=== PATIENT | male | born 1945 | race Caucasian/White ===

== ENCOUNTER → 2020-04-04 14:49 | Outpatient (CLI) | payer MEDICARE, SELFPAY ==
[2020-04-04 15:53] LABS: Basophils # 0.1 K/mm3 (0-0.2); Eosinophils # 0.3 K/mm3 (0.0-0.4); Eosinophils % 4.2 % (0.1-12.0); Hematocrit 46.6 % (42.0-52.0); Hemoglobin 15.7 g/dL (14.1-18.0); Lymphocytes # 2.2 K/mm3 (0.7-4.5); Lymphocytes % 34.1 % (10-50); Mean Corpuscular HGB Conc 33.6 g/dL (31.8-35.4); Mean Corpuscular Hemoglobin 33.1 pg (27.0-31.2); Mean Corpuscular Volume 98.4 fl (80-94); Mean Platelet Volume 9.3 fl (7.4-10.4); Monocytes # 0.5 K/mm3 (0.1-1.0); Neutrophils # 3.5 K/mm3 (1.8-7.8); Neutrophils % 53.8 % (37.0-80.0); Platelet Count 207 K/mm3 (142-424); Red Blood Count 4.74 M/mm3 (4.60-6.20); Red Cell Distribution Width 13.5 % (11.5-17.5); White Blood Count 6.5 K/mm3 (4.8-10.8)
[2020-04-04 15:56] LABS: Alanine Aminotransferase 45 U/L (12-78); Albumin Level 4.3 g/dl (3.5-5.0); Albumin/Globulin Ratio 1.7 (1.1-1.8); Alkaline Phosphatase 91 U/L (38-126); Aspartate Amino Transferase 40 U/L (17-59); Bilirubin,Total 0.7 mg/dl (0.2-1.3); Blood Urea Nitrogen 22 mg/dl (9-20); Calcium 9.6 mg/dl (8.4-10.2); Carbon Dioxide 29 mmol/L (22.0-30.0); Chloride 104 mmol/L (98-107); Chol/HDL Ratio 3.7 (1-3.5); Cholesterol 128 mg/dl (140-200); Estimated Glomerular Filt Rate 66 ml/min (>60); GFR (African American) 79 ML/MIN (>60); Globulin 2.5 g/dL (1.3-3.2); Glucose 105 mg/dl (74-100); HDL Cholesterol 35 mg/dl (40-60); Sodium 141 mmol/L (136-145); Total Protein,Serum 6.8 g/dl (6.3-8.2); Triglycerides 212 mg/dl (30-150); VLDL Cholesterol 42 mg/dL (0-40)
[2020-04-04 16:30] LABS: Prostate Specific Ag Screen 0.5 ng/ml (0.0-4.0)
== END ==
PROVIDERS: Visit Provider Family Medicine
DX: E78.5 Hyperlipidemia, unspecified (principal); I10 Essential (primary) hypertension; Z12.5 Encounter for screening for malignant neoplasm of prostate; J30.2 Other seasonal allergic rhinitis
CPT/HCPCS: 80053; 80061; 85025; G0103

== ENCOUNTER → 2021-03-20 13:17 | Outpatient (CLI) | payer MEDICARE, SELFPAY | PROVIDERS: Visit Provider Family Medicine | DX: R82.90 Unspecified abnormal findings in urine (principal); B96.20 Unspecified Escherichia coli [E. coli] as the cause of diseases classified elsewhere | CPT/HCPCS: 87086; 87088; 87186 ==

== ENCOUNTER → 2021-04-02 13:40 | Outpatient (CLI) | payer MEDICARE, SELFPAY ==
[2021-04-02 13:48] LABS: Microscopic, Urine URINE MICROSCOPIC (MICROSCOPIC)
[2021-04-02 14:39] LABS: Appearance,Urine CLEAR (Clear); Bilirubin,Urine Negative (Negative); Blood, Urine Negative (Negative); Color,Urine YELLOW (Yellow); Glucose,Urine (UA) Negative (Negative); Ketones,Urine Negative (Negative); Leukocyte Esterase,Urine Negative (Negative); Nitrate,Urine Negative (Negative); PH,Urine 5.5 (5.0-8.5); Protein,Urine Negative (Negative); Urobilinogen,Urine 0.2 EU/dl (0.2)
[2021-04-02 15:31] LABS: WBC,Urine Occasional #/hpf (0-3)
== END ==
PROVIDERS: Visit Provider Family Medicine
DX: R82.90 Unspecified abnormal findings in urine (principal)
CPT/HCPCS: 81001

== ENCOUNTER → 2021-04-16 19:29 | Outpatient (CLI) | payer MEDICARE, SELFPAY ==
[2021-04-16 20:04] LABS: Anion Gap 8.5 mEq/L (5-15); Blood Urea Nitrogen 21 mg/dl (9-20); Calcium 8.7 mg/dl (8.4-10.2); Carbon Dioxide 30 mmol/L (22.0-30.0); Chloride 102 mmol/L (98-107); Estimated Glomerular Filt Rate 73 ml/min (>60); GFR (African American) 88 ML/MIN (>60); Glucose 104 mg/dl (74-100); Potassium 3.5 mmoL/L (3.5-5.1); Sodium 137 mmol/L (136-145)
== END ==
PROVIDERS: Visit Provider Family Medicine
DX: E78.5 Hyperlipidemia, unspecified (principal)
CPT/HCPCS: 80048

== ENCOUNTER → 2021-05-31 12:06 | Outpatient (CLI) | payer MEDICARE, SELFPAY ==
--- NOTE | 2021-05-31 12:11 | XR_ITS ---
FINAL REPORT TECHNIQUE: Chest PA & Lateral CLINICAL HISTORY: covid follow up, crackles right base FINDINGS: 2 views of the chest were performed. The heart size is normal. The mediastinum is within normal limits. There are patchy bibasilar airspace infiltrates. There is mild elevation of the right hemidiaphragm. There are no pleural effusions. There is no pneumothorax. The bony thorax appears intact. IMPRESSION: Patchy bibasilar airspace infiltrates. Reviewed, Interpreted and Dictated by Braulio Isaacs MD Transcribed by Joe Jurado Authenticated by Braulio Isaacs MD on 05/31/2021 01:27:38 PM [facility]
== END ==
PROVIDERS: PCP Family Medicine; Visit Provider Family Medicine
DX: R06.02 Shortness of breath (principal); U09.9 Post COVID-19 condition, unspecified
CPT/HCPCS: 71046

== ENCOUNTER → 2023-02-12 09:40 | Outpatient (CLI) | payer MEDICARE, SELFPAY ==
[2023-02-12 18:42] LABS: Basophils % 0.8 % (0.1-2.0); Eosinophils # 0.2 K/mm3 (0.0-0.4); Eosinophils % 3.7 % (0.1-12.0); Hematocrit 45.1 % (42.0-52.0); Hemoglobin 15.2 g/dL (14.1-18.0); Lymphocytes # 1.7 K/mm3 (0.7-4.5); Lymphocytes % 32.4 % (10-50); Mean Corpuscular HGB Conc 33.7 g/dL (31.8-35.4); Mean Corpuscular Hemoglobin 33.6 pg (27.0-31.2); Mean Corpuscular Volume 99.6 fl (80-94); Mean Platelet Volume 10.4 fl (7.4-10.4); Monocytes # 0.5 K/mm3 (0.1-1.0); Monocytes % 9.2 % (1.7-9.3); Neutrophils # 2.8 K/mm3 (1.8-7.8); Neutrophils % 53.9 % (37.0-80.0); Platelet Count 169 K/mm3 (142-424); Red Blood Count 4.52 M/mm3 (4.60-6.20); Red Cell Distribution Width 13.8 % (11.5-17.5); White Blood Count 5.3 K/mm3 (4.8-10.8)
[2023-02-12 18:47] LABS: Alanine Aminotransferase 34 U/L (12-78); Albumin/Globulin Ratio 1.5 (1.1-1.8); Alkaline Phosphatase 87 U/L (38-126); Aspartate Amino Transferase 39 U/L (17-59); Bilirubin,Total 0.8 mg/dl (0.2-1.3); Blood Urea Nitrogen 18 mg/dl (9-20); Calcium 9.4 mg/dl (8.4-10.2); Carbon Dioxide 26 mmol/L (22.0-30.0); Chloride 106 mmol/L (98-107); Chol/HDL Ratio 4.2 (1-3.5); Cholesterol 117 mg/dl (140-200); Estimated Glomerular Filt Rate 82 ml/min (>60); GFR (African American) 99 ML/MIN (>60); Globulin 2.7 g/dL (1.3-3.2); Glucose 122 mg/dl (74-100); HDL Cholesterol 28 mg/dl (40-60); Total Protein,Serum 6.7 g/dl (6.3-8.2); Triglycerides 188 mg/dl (30-150); VLDL Cholesterol 38 mg/dL (0-40)
[2023-02-12 18:58] LABS: Direct LDL Cholesterol 65.15 mg/dL (100-129)
[2023-02-12 19:18] LABS: Prostate Specific Ag Screen 0.5 ng/ml (0.0-4.0); Sodium 139 mmol/L (136-145)
== END ==
PROVIDERS: PCP Family Medicine; Visit Provider Family Medicine
DX: E78.5 Hyperlipidemia, unspecified (principal); Z12.5 Encounter for screening for malignant neoplasm of prostate; I25.10 Atherosclerotic heart disease of native coronary artery without angina pectoris
CPT/HCPCS: 80053; 80061; 85025; G0103

== ENCOUNTER 2023-09-18 09:57 | Outpatient (CLI) | payer MEDICARE, SELFPAY ==
[2023-09-18 18:09] LABS: Basophils # 0.1 K/mm3 (0-0.2); Basophils % 1.1 % (0.1-2.0); Eosinophils # 0.3 K/mm3 (0.0-0.4); Eosinophils % 5.5 % (0.1-12.0); Hematocrit 46.7 % (42.0-52.0); Hemoglobin 15.5 g/dL (14.1-18.0); Lymphocytes % 34.8 % (10-50); Mean Corpuscular HGB Conc 33.1 g/dL (31.8-35.4); Mean Corpuscular Hemoglobin 33.6 pg (27.0-31.2); Mean Corpuscular Volume 101.7 fl (80-94); Mean Platelet Volume 10.7 fl (7.4-10.4); Monocytes # 0.4 K/mm3 (0.1-1.0); Monocytes % 7.3 % (1.7-9.3); Neutrophils % 51.3 % (37.0-80.0); Platelet Count 177 K/mm3 (142-424); Red Blood Count 4.59 M/mm3 (4.60-6.20); Red Cell Distribution Width 14.5 % (11.5-17.5); White Blood Count 5.8 K/mm3 (4.8-10.8)
[2023-09-18 18:39] LABS: Alanine Aminotransferase 34 U/L (12-78); Albumin/Globulin Ratio 1.6 (1.1-1.8); Alkaline Phosphatase 81 U/L (38-126); Anion Gap 14.2 mEq/L (5-15); Aspartate Amino Transferase 35 U/L (17-59); Blood Urea Nitrogen 17 mg/dl (9-20); Calcium 9.6 mg/dl (8.4-10.2); Carbon Dioxide 27 mmol/L (22.0-30.0); Chloride 105 mmol/L (98-107); Chol/HDL Ratio 3.3 (1-3.5); Cholesterol 117 mg/dl (140-200); Estimated Glomerular Filt Rate 73 ml/min (>60); GFR (African American) 88 ML/MIN (>60); Globulin 2.5 g/dL (1.3-3.2); Glucose 97 mg/dl (74-100); HDL Cholesterol 35 mg/dl (40-60); Potassium 4.2 mmoL/L (3.5-5.1); Sodium 142 mmol/L (136-145); Total Protein,Serum 6.5 g/dl (6.3-8.2); Triglycerides 174 mg/dl (30-150); VLDL Cholesterol 35 mg/dL (0-40)
[2023-09-18 18:50] LABS: Direct LDL Cholesterol 62.87 mg/dL (100-129)
[2023-09-18 20:29] LABS: Hemoglobin A1C 5.3 % (4.0-6.0)
== END 2023-09-18 23:59 | disposition home or self-care (01) ==
LOC: LAB.DROPOF 09-19 09:57
PROVIDERS: PCP Family Medicine; Visit Provider Family Medicine
DX: I11.9 Hypertensive heart disease without heart failure (principal); I25.10 Atherosclerotic heart disease of native coronary artery without angina pectoris; E78.5 Hyperlipidemia, unspecified; R73.09 Other abnormal glucose
CPT/HCPCS: 80053; 80061; 83036; 85025

== ENCOUNTER 2024-04-08 09:20 | Outpatient (CLI) | payer MEDICARE, SELFPAY ==
[2024-04-08 19:17] LABS: Prostate Specific Ag Screen 0.5 ng/ml (0.0-4.0)
== END 2024-04-08 23:59 | disposition home or self-care (01) ==
LOC: LAB.DROPOF 04-09 09:32
PROVIDERS: PCP Family Medicine; Visit Provider Family Medicine
DX: Z12.5 Encounter for screening for malignant neoplasm of prostate (principal)
CPT/HCPCS: G0103

== ENCOUNTER 2024-12-06 13:00 | Outpatient (CLI) | payer MEDICARE, SELFPAY ==
[2024-12-06 15:39] LABS: Hematocrit 45.5 % (42.0-52.0); Hemoglobin 15.1 g/dL (14.1-18.0); Immature Granulocytes % 0.7 %; Mean Corpuscular HGB Conc 33.2 g/dL (31.8-35.4); Mean Corpuscular Hemoglobin 32.8 pg (27.0-31.2); Mean Corpuscular Volume 98.9 fl (80-94); Nucleated Red Blood Cells % 0 %; Platelet Count 203 K/mm3 (142-424); Red Blood Count 4.60 M/mm3 (4.60-6.20); Red Cell Distribution Width-SD 45.3 fL; White Blood Count 6.0 K/mm3 (4.8-10.8)
[2024-12-06 16:32] LABS: Alanine Aminotransferase 41 U/L (12-78); Albumin Level 4.1 g/dl (3.5-5.0); Albumin/Globulin Ratio 2.0 (1.1-1.8); Alkaline Phosphatase 92 U/L (38-126); Anion Gap 9.1 mEq/L (5-15); Aspartate Amino Transferase 33 U/L (17-59); Bilirubin,Total 0.8 mg/dl (0.2-1.3); Blood Urea Nitrogen 16 mg/dl (9-20); Calcium 9.9 mg/dl (8.4-10.2); Carbon Dioxide 30 mmol/L (22.0-30.0); Chloride 105 mmol/L (98-107); Cholesterol 140 mg/dl (140-200); Creatinine,Serum 1.00 mg/dl (0.66-1.25); Estimated Glomerular Filt Rate 72 ml/min (>60); GFR (African American) 87 ML/MIN (>60); Globulin 2.1 g/dL (1.3-3.2); Glucose 101 mg/dl (74-100); HDL Cholesterol 32 mg/dl (40-60); Potassium 4.1 mmoL/L (3.5-5.1); Sodium 140 mmol/L (136-145); Total Protein,Serum 6.2 g/dl (6.3-8.2); Triglycerides 211 mg/dl (30-150)
[2024-12-06 17:21] LABS: Hepatitis C Ab Qual. W/ RFX NEGATIVE (Negative)
[2024-12-07 11:12] LABS: Hepatitis B Surface Antigen Negative (Negative)
--- OUTSIDE RECORDS SUMMARY | 2024-12-08 09:17 | XMS_ITS | Clinical Summary ---
Author Organization [employer] [facility] are Address [address] [place] [address] Phone Care Team Providers Care Elastic Yarn Twister Name Role Phone Unavailable Unavailable Conditions or Problems No information available. Medications No information available. Medications Administered No information available. Allergies, Adverse Reactions, Alerts No information available. Results No information available. Plan of Care No information available. Procedures No information available. Vital Signs No information available. Immunizations No information available. Advance Directives No information available.
--- OUTSIDE RECORDS SUMMARY | 2024-12-08 09:18 | XMS_ITS | Clinical Summary ---
Author Organization Healthcare Address [address] [place] [address] Care Team Providers Care Automation Qa Tester Name Role Phone Pcp, No Primary Care Provider UnavailRaman Mejia DMD Unavailable [phone] Allergies No known active allergies Medications hydroCHLOROthiazide (HYDRODiuril) 12.5 MG tablet Take 12.5 mg by mouth 2 (two) times a day. Active losartan (Cozaar) 100 MG tablet Take 100 mg by mouth 1 (one) time each day. Active aspirin 81 MG chewable tablet Chew 81 mg 1 (one) time each day. Active carvedilol (Coreg) 25 MG tablet Take 12.5 mg by mouth 2 (two) times a day with meals. Active atorvastatin (Lipitor) 40 MG tablet Take 40 mg by mouth 1 (one) time each day. Active nitroglycerin (Nitrostat) 0.[address] 0.4 mg under the tongue every 5 (five) minutes if needed for chest pain. Active Potassium Chloride 20 MEQ/15ML (10%) solution Take 10 mEq by mouth 1 (one) time each day. Active famotidine (Pepcid) 20 MG tablet Take by mouth. Active loratadine (Claritin Reditabs) 10 MG disintegrating tablet Take 10 mg by mouth 1 (one) time each day. Active Social History Tobacco Use Types Packs/Day Years Used Date Smoking Tobacco: Former Cigarettes 1 20 0 10/14/1984 - 10/14/2004 Smokeless Tobacco: Never Tobacco Cessation:Counseling Given: No Alcohol Use Standard Drinks/Week Comments Not Currently 0 (1 standard drink = 0.6 oz pur e alcohol) Sex and Gender Information Value Date Recorded Sex Assigned at Not on file Legal Sex Male 9:10 PM EDT Gender Identity Not on file Sexual Orientation Not on file Plan of Treatment Health Maintenance Due Date Last Done Comments Dental Oral Exam 1945 Dental Prophylaxis 1945 Dental X-Ray: Bitewings 1946 Dental X-Ray: Full Mouth 1946 [facility]-Depression Screening 1946 [facility]-Infant/Child/Adol SDOH Screenings 1946 [facility]- SDOH Screenings 1964 [facility]-Adult SDOH Screenings 1964 [facility]-DTaP,Tdap,and Td Vaccines (1 - Tdap) 1965 [facility]-Zoster Vaccines (1 of 2) 1996 [facility]-Pneumococcal Vaccine: 50+ Years (2 of 2 - PPSV23) 01/23/2021 01/24/2020 [facility]-RSV Vaccine: 60+ Years or (1 - 1-dose 75+ series) 2021 HHS-AFDAC-45 Vaccine (3 - season) 2024 08/12/2020, 07/22/2020 [facility]-Influenza Vaccine (#1) 01/03/202501/30, 01/24/2020 HPV Vaccines Aged Out No longer eligi ble based on patient's age to complete this topic [facility]-HIB Vaccines Aged Out No longer e ligible based on patient's age to complete this topic [facility]-Hepatitis A Vaccines Aged Out No longer eligible based on patient's age to complete this topic [facility]-IPV Vaccines Aged Out No longer e ligible based on patient's age to complete this topic [facility]-Rotavirus Vaccines Aged Out No lo nger eligible based on patient's age to complete this topic Insurance [facility] Care Teams Automation Qa Tester Relationship Specialty Start Date End Date Pcp, No [address] [place] [address] PCP - General 01/02/21 Raman Silva, DMD [address] [facility] [address] [place] [address] Dentist 01/15/22
--- OUTSIDE RECORDS SUMMARY | 2024-12-08 09:18 | XMS_ITS | Referral Summary ---
Author Organization [facility] Address [address] [place] [address] [place] [address] Care Team Providers Care Crane Oiler Name Role Phone Unavailable Primary Care Provider Unavailabl e Social History Tobacco Use Types Packs/Day Years Used Date Smoking Tobacco: Never Assessed Sex and Gender Information Value Date Recorded Sex Assigned at Not on file Legal Sex Male 7:31 PM EDT Gender Identity Not on file Sexual Orientation Not on file Plan of Treatment Not on file
--- OUTSIDE RECORDS SUMMARY | 2024-12-08 09:18 | XMS_ITS | Clinical Summary ---
Author Organization [facility] Address [address] [place] [address] [place] [address] Care Team Providers Care Shop Worker Name Role Phone Unavailable Primary Care Provider Unavailabl e Social History Tobacco Use Types Packs/Day Years Used Date Smoking Tobacco: Never Assessed Sex and Gender Information Value Date Recorded Sex Assigned at Not on file Legal Sex Male 7:31 PM EDT Gender Identity Not on file Sexual Orientation Not on file Plan of Treatment Health Maintenance Due Date Last Done Comments Hepatitis C Screening 1945 DTap,Tdap,and Td (1 - Tdap) 1957 Pneumococcal 50+ (1 of 1 - PCV) 1996 Shingrix (#1) 1996 RSV Vaccine (60+ or ) (1 - 1-dose 75+ series) 2021 Influenza Vaccine (#1) 2025 HPV Aged Out No longer eligi ble based on patient's age to complete this topic Meningococcal conjugate christian nt 4 (MCV4) Aged Out No longer eligible b ased on patient's age to complete this topic RSV Immunization (<20 months) Aged Out No longer eligible based on patient's age to complete this topic
== END 2024-12-06 23:59 | disposition home or self-care (01) ==
LOC: LAB.DROPOF 12-08 09:17
PROVIDERS: PCP Family Medicine; Visit Provider Family Medicine
DX: I25.10 Atherosclerotic heart disease of native coronary artery without angina pectoris (principal); I10 Essential (primary) hypertension; E78.5 Hyperlipidemia, unspecified; Z11.59 Encounter for screening for other viral diseases
CPT/HCPCS: 80053; 80061; 85025; 86803; 87340; 87389